=== PATIENT | male | born 1990 | race Caucasian/White ===

== ENCOUNTER → 2017-03-25 | Outpatient (CLI) | payer OTHER ==
--- NOTE | 2017-03-25 09:45 | KCIC ---
CT right foot without contrast dated 03/25/2017. Comparison made to plain films dated 03/04/2017. CLINICAL INDICATION: History of prior fracture 6 months ago. Pain at the plantar aspect of the foot. TECHNIQUE: Contiguous axial imaging of the left foot performed with thin cut coronal and sagittal reconstruction. FINDINGS: Old healed fracture deformity of the third metatarsal shaft, similar to prior study. No acute fracture or bony destructive process. No periostitis. Alignment is anatomic. Minimal hypertrophic changes at the joints of midfoot. No apparent joint effusion. No significant soft tissue abnormality. Ligaments and tendons are not well evaluated based on technique. There is some mild edema within the subcutaneous tissues near the fifth MTP joint, nonspecific. IMPRESSION: 1. No apparent acute bony or soft tissue abnormality. 2. Old healed fracture of the third metatarsal shaft. Electronically signed by: Turner Israel MD (03/25/2017 9:43 AM) [id number]
== END | disposition home or self-care (01) ==
LOC: EDSEX → KCIC CT 08:47
PROVIDERS: ATTEND Orthopaedic Surgery Sports Medicine
DX: M79.671 Pain in right foot (principal)
CPT/HCPCS: 73700